=== PATIENT | female | born 1995 | race Caucasian/White ===

== ENCOUNTER 2024-12-07 08:45 | Emergency (ER) | payer OTHER, SELFPAY ==
--- NOTE | ~2024-12-07 | CT_ITS ---
CLINICAL HISTORY: chin strike laceration CT maxillofacial without contrast Comparison: None Findings: No acute fracture. Mild soft tissue swelling with increased density overlying midline mandible. Nasal piercing and eyelid piercing noted. Temporomandibular joints appear properly positioned. Imaged paranasal sinuses and mastoid air cells are essentially clear. Visualized orbital contents are unremarkable. Nasal cavity demonstrates nothing unusual. Impression: 1. No acute fracture. 2. Mild soft tissue contusion overlying midline mandible. This document has been electronically signed by: Marie Beyer MD on 12/07/2024 15:00:43
[2024-12-07 08:55] VITALS: BP 100/63; PULSE 87; RESP 20; TEMP 37; O2SAT 99; BMI 21.0
--- NOTE | 2024-12-07 09:19 | ED.WOUNDLAC ---
HPI - Wound/Laceration General Chief Complaint: Wound/Laceration Stated Complaint: split chin open Time Seen by Provider: 12/07/24 09:18 Source: patient and family (mom) Mode of arrival: ambulatory Limitations: no limitations History of Present Illness ED Provider: DEBI MEMBRENO PA-C HPI narrative: 29 year old female with pmhx significant for anxiety, depression, and bipolar disorder presents to the ED today for evaluation of laceration to her chin sustained last night. She reports waking up from bed to use the bathroom when she bent over the struck her chin on the corner of the sink. Denies LOC. She is not on anticoagulation. She did not think anything of it and reports going back to bed. She woke up and noticed blood on her pillow and saw that she had a laceration to her chin that she is assuming she sustained when she hit her face on the sink. She admits to consuming alcohol last night and the story seems a bit unclear. She reports some discomfort around the laceration. Denies any difficulty opening or closing her jaw. Denies any headache, vision changes, dizziness, neck pain. No other concerns. Related Data Allergies Allergy/AdvReac Type Severity Reaction Status Date / Time clindamycin Allergy Rash Verified 12/07/24 08:58 Review of Systems Review of Systems: Constitutional: No fever, chills, fatigue, night sweats, weight changes ENT/Mouth: No ear pain, hearing loss, nasal congestion, sinus pain, rhinorrhea, sore throat Eyes: No eye pain, swelling, redness, vision changes, discharge Cardio: No chest pain, palpitations, BOWMAN, orthopnea, peripheral edema Pulm: No SOB, cough, sputum, wheezing, dyspnea, hemoptysis GI: No nausea, vomiting, hematemesis, abdominal pain, diarrhea, constipation, hematochezia, melena : No irregular bleeding, dysuria, frequency, urgency, hesitancy, hematuria, flank pain, urinary flow changes, urinary incontinence or retention MSK: No back pain, neck pain, joint pain, myalgias Skin: No lesions, rashes, +chin laceration Neuro: No weakness, numbness, paresthesias, LOC, dizziness, headache Psych: No anxiety/panic, depression, SI/HI, AH/VH All other systems reviewed and are negative. [facility] Past Medical History Attestation statement: The following information was validated with the patient. Source: old records reviewed and nursing notes reviewed Social History Social History Smoked in Last 30 Days: No Use of substances other than those prescribed or required for medical reasons: No Advance Directives: No Advance Directives Information Provided: No Patient : No Physical Exam Vital Signs: Vital Signs: Last Vital Signs Temp 98.6 F 12/07/24 12:31 Pulse 75 12/07/24 12:31 Resp 16 12/07/24 12:31 BP 102/76 12/07/24 12:31 Pulse Ox 98 12/07/24 12:31 O2 Del Method Room Air 12/07/24 12:31 BMI result Body Mass Index 21.0 Vital signs stable General: Well appearing, in no acute distress. Skin: +2 cm linear laceration noted to chin, bleeding controlled. Not through and through. No retained foreign body. No involvement of deeper structures. Head: Normocephalic, atraumatic. No raccoon eyes, jameson sign. EENT: Hearing is intact b/l. Conjunctiva clear. PERRLA. EOM intact. Moist mucous membranes. Dentition intact. No tongue bite/laceration. TJM intact. Neck: No midline cervical spinous tenderness or step-off deformity Cardiac: Chest wall symmetric. RRR Lungs: Normal respiratory effort without accessory muscle use. CTA bilaterally. Abdomen: Soft, non-tender, non-distended. No rebound tenderness or guarding. Positive BS x4. Back: No midline spinous or paraspinal tenderness. No step off deformity. Ext: Upper and lower extremities atraumatic, without tenderness, deformity, swelling or erythema Neuro: AOx3. Normal speech. Ambulating with steady gait Course Course Course Narrative: CT facial bones pending. Patient medicated with local anesthetic. Laceration repaired with 6 sutures. See procedure note. Patient tolerated well. Patient tells me her tetanus is up-to-date. 1223 -- multiple attempts at contacting Radiology for CT facial bones read. I have still not received an official report. Patient states that she would like to leave. She states that she is starving and ifshe stays in the longer I will start to . We have offered her food here. She declines. I informed patient that if she would like to leave prior to scan being read, she would have to sign out AMA. Discussed risks of leaving the ED without CT read. She verbalizes understanding and would like to sign out AMA. her mother at bedside will be transporting her home today. ama paperwork signed. 1518 -- ct facial bones showing mild soft tissue swelling with increased density overlying midline mandible, consistent with laceration. There is no acute fracture. Medications Administered Discontinued Medications Generic Name Dose Route Start Last Admin Trade Name Sharon PRN Reason Stop Dose Admin Lidocaine HCl 10 ml 12/07/24 09:33 12/07/24 10:55 Lidocaine Hcl 1 % Mpf 5 Ml Vial INFILTRATI 12/07/24 09:34 10 ml ONCE ONE Administration Medical Decision Making Medical Decision Making [facility] Narrative: 29 year old female with pmhx significant for anxiety, depression, and bipolar disorder presents to the ED today for evaluation of laceration to her chin sustained last night. Vital signs stable. She is well-appearing and in no acute distress. Exam is nonfocal. A&O x3. TMJs intact. EOMs intact w/o entrapment. c spine w/o tenderness or step off. on exam, there is a 2 cm linear laceration noted to chin, bleeding controlled. Not through and through. No retained foreign body. No involvement of deeper structures. Differential diagnosis includes abrasion, laceration, contusion. lower suspicion for facial fracture. Plan for imaging, lac repair, and discharge. Differential Diagnosis Differential Diagnoses: The differential diagnosis associated with the presentation includes as above. Admission/Observation Not indicated Lab Data [facility] Lab Attestation statement: I reviewed the patient's lab results. as above. Labs: Lab Results 12/07/24 Range/Units 09:46 Urine Test NEGATIVE (NEGATIVE) Independent Interpretation I performed an independent interpretation of an: CT Scan Interpretation: ct facial bones without fracture Radiology Impression Discussion of test interpretation with radiology: I have reviewed the radiologist's reading. Radiologist Impression: Procedure(s): CT facial bones wo IV con Accession Number(s): [id number] cc: Debi Membreno; Chantale James NP~ Report Number: [id number]: Total DLP = 209.00 mGy-cm CLINICAL HISTORY: chin strike laceration CT maxillofacial without contrast Comparison: None Findings: No acute fracture. Mild soft tissue swelling with increased density overlying midline mandible. Nasal piercing and eyelid piercing noted. Temporomandibular joints appear properly positioned. Imaged paranasal sinuses and mastoid air cells are essentially clear. Visualized orbital contents are unremarkable. Nasal cavity demonstrates nothing unusual. Impression: 1. No acute fracture. 2. Mild soft tissue contusion overlying midline mandible. This document has been electronically signed by: Marie Beyer MD on 12/07/2024 15:00:43 Independent Historian Clinical information obtained from an independent historian. History obtained from or confirmed by: Parent (mom) Prescription Management I considered prescription management with: Pain Medication Social Determinants Patient?s care significantly limited by Social Determinants of Health including: Other Social Determinant of Health Procedures Laceration Laceration 1: Site: face (chin) Size (cm): 2 Description: linear Depth: simple, single layer Local Anesthetic: lidocaine 1% Amount of anesthesia used (mL): 10 Pre-repair: wound explored, irrigated extensively and deep structures intact Skin layer closed with: other (Monofilament polypropylene) Size (cm): 5-0 Number of sutures: 6 Technique: simple, interrupted Critical Care Time Critical Care Time Critical Care Time: No Discharge Plan Discharge Clinical Impression: Chin laceration Patient Disposition: Left Against Medical Advice Instructions: Care For Your Stitches (DC), Laceration (ED) Additional Instructions: You have been evaluated in the Emergency Department today for a laceration to your chin. Your laceration was repaired in the ED with 6 sutures.? You tell me your tetanus is up to date so this was not updated today. Please keep the area surrounding the laceration clean and dry. Do not get the area wet for 24 hours. After 24 hours, you may clean the area with a non-scented soap and pat to dry. Please keep the area out of the sunlight for the next 6 months to help prevent scarring.? If you develop redness or swelling at the site of your laceration or note any discharge/ fluid coming from the laceration, please come back to the ER for a wound check. You are leaving without results from your CT scan. I recommend you take 600mg ibuprofen every 6 hours or tylenol 650mg every 6 hours as needed for pain. If needed, you can alternate these medications so that you take one medication every 3 hours. For example, at noon take ibuprofen, then at 3pm take tylenol, then at 6pm take ibuprofen. Please follow up with your primary care physician in 5-7 days for suture removal. You may also return to the ER or another urgent care facility for this service. Return to the Emergency Department if you experience discharge from your laceration, redness around your laceration, warmth around your laceration, fever, vomiting, numbness, tingling, or any other concerning symptoms. In the case of an emergency call 911. Referrals: Chantale James NP [Primary Care Provider, Family Practice] Stand Alone Forms: Against Medical Advice Interventions: ED Discharge Assessment Last Done: 12/07/24 12:31 Discharge Date/Time: 12/07/24 12:32 Print Language: Luxembourger
[2024-12-07 09:58] LABS: UPreg QC Valid YES
[2024-12-07] MEDS: Lidocaine HCl 1 % MPF 5 ML VIAL 10 ML INFILTRATI (10:55)
[2024-12-07 12:00] VITALS: BP 102/76; PULSE 75; RESP 16; TEMP 37; O2SAT 98
[2024-12-07 12:31] VITALS: BP 102/76; PULSE 75; RESP 16; TEMP 37; O2SAT 98
== END 2024-12-07 12:32 | disposition left against medical advice (07) ==
PROVIDERS: Physician Assistant Medical; Emergency Provider Emergency Medicine Emergency Medical Services; PCP Nurse Practitioner Family
DX: S01.81XA Laceration without foreign body of other part of head, initial encounter (principal); R51.9 Headache, unspecified; W01.10XA Fall on same level from slipping, tripping and stumbling with subsequent striking against unspecified object, initial encounter; Y93.9 Activity, unspecified; Y92.9 Unspecified place or not applicable; Y99.8 Other external cause status
CPT/HCPCS: 12011; 70486; 81025; 99284; J2003

== ENCOUNTER → 2024-12-07 09:33 | Outpatient (BNV) | payer OTHER, SELFPAY | PROVIDERS: Emergency Provider Emergency Medicine Emergency Medical Services; PCP Nurse Practitioner Family; Visit Provider Radiology Diagnostic Radiology | DX: S01.81XA Laceration without foreign body of other part of head, initial encounter (principal) | CPT/HCPCS: 70486 ==